=== PATIENT | female | born 1990 | race African-American/Black ===

== ENCOUNTER 2024-01-05 12:27 | Emergency (ER) | payer MEDICAID, OTHER ==
[~2024-01-05] VITALS: Ht 167.6 cm; Wt 105.0 kg
[~2024-01-05 12:27] MED LIST: B50; WELBUTRIN
[2024-01-05 12:33] VITALS: O2SAT 98
[2024-01-05 13:00] VITALS: TEMP 98.4
[2024-01-05] MEDS: ACETAMINOPHEN 325MG TABLET PO ONE (13:00)
[2024-01-05 13:15] VITALS: BP 117/81; PULSE 97; RESP 18
[2024-01-05] MEDS: KETOROLAC 30MG/ML VIAL IM ONE (13:15)
[2024-01-05] MEDS ORDERED: IBUP-2030 MT (13:17)
[2024-01-05] MEDS ORDERED: AMOX1TAB16 MT (13:17)
[2024-01-05] MEDS ORDERED: BENZ1LOZ73 MT (13:17)
== END 2024-01-05 15:02 | disposition home or self-care (01) ==
LOC: ER 12:27
DX: J02.9 Acute pharyngitis, unspecified (principal); E11.9 Type 2 diabetes mellitus without complications
CPT/HCPCS: 99284; 71045; 81025; 87430; 87070; 96372; J1885

== ENCOUNTER 2025-01-03 08:55 | Emergency (ER) | payer MEDICAID, OTHER ==
[~2025-01-03] VITALS: Ht 167.6 cm; Wt 90.0 kg
[~2025-01-03 08:55] MED LIST changes: +AMOX1TAB16 MT; +BENZ1LOZ73 MT; +IBUP-2030 MT
[2025-01-03 09:01] VITALS: O2SAT 100
[2025-01-03 09:46] LABS: CLARITY URINE CLEAR (CLEAR); COLOR URINE YELLOW (YELLOW); GLUCOSE URINE NEGATIVE (NEGATIVE); KETONES URINE 1+ (NEGATIVE); LEUKOCYTE ESTERASE URINE NEGATIVE (NEGATIVE); NITRITE URINE NEGATIVE (NEGATIVE); OCCULT BLOOD URINE NEGATIVE (NEGATIVE); PH URINE >=9.0 (4.5-8.0); PROTEIN URINE 1+ (NEGATIVE); SPECIFIC GRAVITY URINE 1.017 (1.005-1.030); UROBILINOGEN URINE 1.0 E.U./dL (0.2-1.0)
[2025-01-03] MEDS: MAGNESIUM/ALUMINUM HYDROXIDE/SIMETHICONE 30ML UDC PO ONE (09:46)
[2025-01-03] MEDS: FAMOTIDINE 20MG TABLET PO ONE (09:46)
[2025-01-03 09:52] LABS: BASOPHILS % 0.7 % (0.0-2.0); EOSINOPHILS % 0.3 % (0.0-5.0); HEMATOCRIT. 42.2 % (36.0-48.0); HEMOGLOBIN. 13.9 g/dL (12.0-16.0); LYMPHOCYTES % 22.7 % (20.0-50.0); MEAN PLATELET VOLUME 7.5 fl (7.4-10.4); MONOCYTES % 3.2 % (2.0-8.0); NEUTROPHILS % 73.1 % (40.0-76.0); PLATELET 435 x1000/uL (130-400); RED BLOOD CELL COUNT 5.16 mill/uL (4.2-5.4); RED CELL DISTRIBUTION WIDTH 14.8 % (11.6-14.6)
[2025-01-03 10:00] LABS: BACTERIA URINE 1+; RBC URINE 0-2 /hpf (0-2); SQUAMOUS EPITHELIAL CELL URINE 1+ /lpf (RARE/1+); YEAST URINE NONE SEEN
[2025-01-03 10:09] LABS: HCG SCREEN NEGATIVE
[2025-01-03 10:11] LABS: CREATININE 0.6 mg/dL (0.6-1.0); UREA NITROGEN BLOOD < 5 mg/dL (9-23)
[2025-01-03 10:12] LABS: ETHANOL BLOOD < 10 mg/dL (<10)
[2025-01-03 10:13] LABS: ASPARTATE AMINOTRANSFERASE 18 IU/L (<34); BILIRUBIN DIRECT 0.3 mg/dL (<=3.0); BILIRUBIN TOTAL 0.8 mg/dL (0.1-1.0); PROTEIN TOTAL 8.0 g/dL (6.0-8.3); TROPONIN I HIGH SENSITIVITY < 4 ng/L (3.0-34)
[2025-01-03] MEDS ORDERED: NITR-87 MT (10:27)
[2025-01-03 10:42] VITALS: BP 112/71; PULSE 83; RESP 19; TEMP 36.7; O2SAT 100
== END 2025-01-03 10:44 | disposition home or self-care (01) ==
LOC: ER 08:55
DX: B34.9 Viral infection, unspecified (principal); N39.0 Urinary tract infection, site not specified; E11.9 Type 2 diabetes mellitus without complications; I10 Essential (primary) hypertension; F32.A Depression, unspecified; Z59.01 Sheltered homelessness; Z79.899 Other long term (current) drug therapy
CPT/HCPCS: 36415; 80048; 80076; 80320; 81003; 81025; 82962; 84484; 84703; 85025; 99283; G0480

== ENCOUNTER 2025-03-07 16:09 | Emergency (ER) | payer MEDICAID ==
[~2025-03-07] VITALS: Ht 162.6 cm; Wt 100.0 kg
[~2025-03-07 16:09] MED LIST changes: -B50; +DIPH50CA42; +NITR-87 MT
[2025-03-07 16:14] VITALS: O2SAT 99
[2025-03-07 16:17] VITALS: TEMP 36.9; O2SAT 98
[2025-03-07 17:18] LABS: BASOPHILS % 0.9 % (0.0-2.0); EOSINOPHILS % 0.1 % (0.0-5.0); HEMATOCRIT. 41.5 % (36.0-48.0); HEMOGLOBIN. 13.6 g/dL (12.0-16.0); LYMPHOCYTES % 24.2 % (20.0-50.0); MEAN PLATELET VOLUME 7.9 fl (7.4-10.4); MONOCYTES % 4.2 % (2.0-8.0); NEUTROPHILS % 70.6 % (40.0-76.0); PLATELET 416 x1000/uL (130-400); RED BLOOD CELL COUNT 5.12 mill/uL (4.2-5.4); RED CELL DISTRIBUTION WIDTH 14.5 % (11.6-14.6)
[2025-03-07 17:28] LABS: CREATININE 0.8 mg/dL (0.6-1.0); HCG SCREEN NEGATIVE
[2025-03-07 17:29] LABS: UREA NITROGEN BLOOD < 5 mg/dL (9-23)
[2025-03-07 17:30] LABS: ASPARTATE AMINOTRANSFERASE 38 IU/L (<34)
[2025-03-07 17:31] LABS: BILIRUBIN DIRECT 0.2 mg/dL (<=3.0); BILIRUBIN TOTAL 0.5 mg/dL (0.1-1.0); PROTEIN TOTAL 7.9 g/dL (6.0-8.3)
[2025-03-07 18:09] LABS: GLUCOSE URINE NEGATIVE (NEGATIVE); KETONES URINE 3+ (NEGATIVE); LEUKOCYTE ESTERASE URINE NEGATIVE (NEGATIVE); NITRITE URINE NEGATIVE (NEGATIVE); OCCULT BLOOD URINE NEGATIVE (NEGATIVE); PH URINE 5.5 (4.5-8.0); PROTEIN URINE 1+ (NEGATIVE); SPECIFIC GRAVITY URINE 1.030 (1.005-1.030); UROBILINOGEN URINE 1.0 E.U./dL (0.2-1.0)
[2025-03-07 18:18] VITALS: BP 134/77; PULSE 103; RESP 18
[2025-03-07] MEDS: SODIUM CHLORIDE 0.9% 1,000 ML IV NR (18:18)
[2025-03-07] MEDS: ONDANSETRON HCL 4MG/2ML INJ IV NR (18:18)
[2025-03-07] MEDS: KETOROLAC 15MG/ML VIAL IV NR (18:18)
[2025-03-07 18:25] LABS: COLOR URINE YELLOW (YELLOW)
[2025-03-07 18:26] LABS: CLARITY URINE SL HAZY (CLEAR)
[2025-03-07 18:27] LABS: BACTERIA URINE TRACE; MUCUS URINE 2+ /lpf (< = 2+); RBC URINE NONE SEEN /hpf (0-2); SQUAMOUS EPITHELIAL CELL URINE FEW /lpf (RARE/1+)
[2025-03-07] MEDS ORDERED: ONDA-239 PO (20:25)
[2025-03-07] MEDS ORDERED: KETO10TA2 MT (20:26)
== END 2025-03-07 20:48 | disposition home or self-care (01) ==
LOC: ER 16:09
DX: R10.84 Generalized abdominal pain (principal); R10.2 Pelvic and perineal pain; E11.9 Type 2 diabetes mellitus without complications; Z59.01 Sheltered homelessness
CPT/HCPCS: 80076; 80048; 81003; 81025; 84703; 83690; 85025; 36415; 74176; 76830; 76856; 96361; 96374; 96375; 99285; J1885; J2405; Z7610 ×2

== ENCOUNTER 2025-05-09 14:35 | Emergency (ER) | payer MEDICAID, OTHER ==
[~2025-05-09] VITALS: Ht 165.1 cm; Wt 91.0 kg
[~2025-05-09 14:35] MED LIST changes: +KETO10TA2 MT; +ONDA-239 PO
[2025-05-09 14:52] VITALS: O2SAT 99
[2025-05-09 16:10] LABS: BASOPHILS % 0.2 % (0.0-2.0); EOSINOPHILS % 0.0 % (0.0-5.0); HEMATOCRIT. 46.4 % (36.0-48.0); HEMOGLOBIN. 14.7 g/dL (12.0-16.0); LYMPHOCYTES % 23.0 % (20.0-50.0); MEAN PLATELET VOLUME 8.3 fl (7.4-10.4); MONOCYTES % 4.2 % (2.0-8.0); NEUTROPHILS % 72.6 % (40.0-76.0); PLATELET 362 x1000/uL (130-400); RED BLOOD CELL COUNT 5.68 mill/uL (4.2-5.4); RED CELL DISTRIBUTION WIDTH 15.6 % (11.6-14.6)
[2025-05-09 16:29] LABS: ASPARTATE AMINOTRANSFERASE 16 IU/L (<34); CREATININE 0.7 mg/dL (0.6-1.0)
[2025-05-09 16:30] LABS: BILIRUBIN DIRECT 0.3 mg/dL (<=3.0); BILIRUBIN TOTAL 0.6 mg/dL (0.1-1.0); PROTEIN TOTAL 7.6 g/dL (6.0-8.3); UREA NITROGEN BLOOD < 5 mg/dL (9-23)
[2025-05-09] MEDS: SODIUM CHLORIDE 0.9% 1,000 ML IV ONE (16:37)
[2025-05-09] MEDS: ONDANSETRON HCL 4MG/2ML INJ IV ONE (16:39)
[2025-05-09 16:41] LABS: HCG SCREEN NEGATIVE
[2025-05-09 16:41] LABS: GLUCOSE URINE NEGATIVE (NEGATIVE); KETONES URINE 4+ (NEGATIVE); LEUKOCYTE ESTERASE URINE TRACE (NEGATIVE); NITRITE URINE NEGATIVE (NEGATIVE); OCCULT BLOOD URINE NEGATIVE (NEGATIVE); PH URINE 5.5 (4.5-8.0); PROTEIN URINE 2+ (NEGATIVE); SPECIFIC GRAVITY URINE 1.032 (1.005-1.030); UROBILINOGEN URINE 1.0 E.U./dL (0.2-1.0)
[2025-05-09] MEDS: ACETAMINOPHEN 1000MG/100ML 100 ML IV ONE (16:52)
[2025-05-09 17:04] LABS: CLARITY URINE SL HAZY (CLEAR); COLOR URINE YELLOW (YELLOW)
[2025-05-09 17:05] LABS: WBC URINE 0-2 /hpf (0-2)
[2025-05-09 17:06] LABS: BACTERIA URINE TRACE; RBC URINE NONE SEEN /hpf (0-2); SQUAMOUS EPITHELIAL CELL URINE RARE /lpf (RARE/1+)
[2025-05-09 17:07] LABS: MUCUS URINE 1+ /lpf (< = 2+)
[2025-05-09] MEDS: KETOROLAC 15MG/ML VIAL IV ONE (17:35)
[2025-05-09 17:44] VITALS: TEMP 37.2
[2025-05-09] MEDS: METOCLOPRAMIDE HCL 10MG/2ML VIAL IV ONE (18:35)
[2025-05-09] MEDS: VISCOUS LIDOCAINE 2% 15 ML UDC MM ONE (18:35)
[2025-05-09] MEDS: MAGNESIUM/ALUMINUM HYDROXIDE/SIMETHICONE 30ML UDC PO ONE (18:35)
[2025-05-09] MEDS: FAMOTIDINE 20MG TABLET PO ONE (18:36)
[2025-05-09] MEDS ORDERED: ONDA-239 PO (20:16)
[2025-05-09] MEDS ORDERED: DICY-18 MT (20:50)
[2025-05-09] MEDS: ONDANSETRON 4MG ODT PO ONE (21:03)
[2025-05-09] MEDS: DICYCLOMINE HCL 10MG CAPSULE PO ONE (21:15)
[2025-05-09 21:25] VITALS: BP 113/69; PULSE 102; RESP 13; O2SAT 98
== END 2025-05-09 21:28 | disposition home or self-care (01) ==
LOC: ER 14:49
DX: A08.4 Viral intestinal infection, unspecified (principal); F32.A Depression, unspecified; E11.9 Type 2 diabetes mellitus without complications; F41.9 Anxiety disorder, unspecified; Z79.4 Long term (current) use of insulin
CPT/HCPCS: 99285; 96365; 96375; 80076; 80048; 81003; 81025; 82962; 84703; 83690; 85025; 36415; J1885; Q0162; J2765; J2405; J7030; J0131